=== PATIENT | male | born 1960 | race Caucasian/White ===

== ENCOUNTER → 2018-01-30 | Outpatient (CLI) | payer BC ==
[2018-01-30 07:17] LABS: Basophils % (A) 1 %; Eosinophils # (A) 0.1 k/uL (0-0.7); Eosinophils % (A) 3 %; HCT 45.3 % (39.0-53.0); Lymphocytes # (A) 1.9 k/uL (1.0-4.8); Lymphocytes % (A) 48 %; MCH 31.7 pg (25.0-35.0); MCV 96.1 fL (80.0-100.0); Mean Platelet Volume 6.5; Monocytes # (A) 0.3 k/uL (0-1.0); Monocytes % (A) 7 %; Neutrophils # (A) 1.5 k/uL (1.3-7.7); Neutrophils % (A) 37 %; Platelet Count 238 k/uL (150-450); RBC 4.72 m/uL (4.30-5.90); RDW 12.5 % (11.5-15.5)
[2018-01-30 07:49] LABS: Glucose 102 mg/dL (74-99); Total Protein 6.7 g/dL (6.3-8.2)
[2018-01-30 07:50] LABS: ALT 24 U/L (21-72); AST 25 U/L (17-59); Albumin 3.9 g/dL (3.5-5.0); Alkaline Phosphatase 51 U/L (38-126); Anion Gap 11 mmol/L; Blood Urea Nitrogen 18 mg/dL (9-20); Calcium 9.4 mg/dL (8.4-10.2); Carbon Dioxide 26 mmol/L (22-30); Chloride 105 mmol/L (98-107); Potassium 4.9 mmol/L (3.5-5.1); Sodium 142 mmol/L (137-145)
== END ==
LOC: LABWHC1 06:34
PROVIDERS: ATTEND Family Medicine
DX: D72.819 Decreased white blood cell count, unspecified (principal)
CPT/HCPCS: 36415; 80053; 82607; 85025

== ENCOUNTER → 2018-11-27 | Outpatient (CLI) | payer BC ==
[2018-11-27 07:27] LABS: Basophils % (A) 1 %; Eosinophils # (A) 0.1 k/uL (0-0.7); Eosinophils % (A) 3 %; HCT 44.4 % (39.0-53.0); HGB 14.9 gm/dL (13.0-17.5); Lymphocytes # (A) 1.5 k/uL (1.0-4.8); Lymphocytes % (A) 41 %; MCH 32.3 pg (25.0-35.0); MCHC 33.5 g/dL (31.0-37.0); MCV 96.5 fL (80.0-100.0); Mean Platelet Volume 6.4; Monocytes # (A) 0.2 k/uL (0-1.0); Monocytes % (A) 6 %; Neutrophils # (A) 1.7 k/uL (1.3-7.7); Neutrophils % (A) 45 %; Platelet Count 223 k/uL (150-450); RDW 12.8 % (11.5-15.5); WBC 3.7 k/uL (3.8-10.6)
[2018-11-27 12:28] LABS: Albumin 4.1 g/dL (3.80-4.90); Albumin/Globulin Ratio 1.78 (1.60-3.17); Anion Gap 6.8 mmol/L (4.00-12.00); Calcium 8.9 mg/dL (8.7-10.3); Carbon Dioxide 25.2 mmol/L (21.6-31.8); Globulin 2.3 g/dL (1.6-3.3); Potassium 4.3 mmol/L (3.5-5.5); Total Bilirubin 0.8 mg/dL (0.3-1.2); Total Protein 6.4 g/dL (6.2-8.2)
[2018-11-27 12:34] LABS: T4, Free (Free Thyroxine) 1.2 ng/dL (0.80-1.80)
== END ==
LOC: LABWHC1 06:38
PROVIDERS: ATTEND Family Medicine
DX: E78.5 Hyperlipidemia, unspecified (principal); N40.0 Benign prostatic hyperplasia without lower urinary tract symptoms; N18.2 Chronic kidney disease, stage 2 (mild); R00.1 Bradycardia, unspecified
CPT/HCPCS: 36415; 80053; 80061; 84153; 84439; 84443; 85025

== ENCOUNTER → 2018-12-16 | Outpatient (CLI) | payer BC ==
[2018-12-16 11:22] LABS: Vitamin D 25 Hydroxy 28.3 ng/mL (30.0-100.0)
== END ==
LOC: LABWHC1 06:33
PROVIDERS: ATTEND Family Medicine
DX: N52.9 Male erectile dysfunction, unspecified (principal); F10.10 Alcohol abuse, uncomplicated
CPT/HCPCS: 36415; 82306; 82607; 84402; 84403

== ENCOUNTER → 2019-11-04 | Outpatient (CLI) | payer BC ==
[2019-11-04 06:55] LABS: Appearance,Urine Clear (Clear); Basophils % (A) 1 %; Bilirubin,Urine Negative (Negative); Blood,Urine Negative (Negative); Color,Urine Yellow; Eosinophils # (A) 0.2 k/uL (0-0.7); Eosinophils % (A) 3 %; Glucose,Urine (UA) Negative (Negative); HCT 45.6 % (39.0-53.0); HGB 14.9 gm/dL (13.0-17.5); Ketones,Urine Negative (Negative); Leukocyte Esterase,Urine Negative (Negative); Lymphocytes % (A) 31 %; MCH 32.1 pg (25.0-35.0); MCHC 32.6 g/dL (31.0-37.0); MCV 98.4 fL (80.0-100.0); Mean Platelet Volume 6.9; Monocytes # (A) 0.3 k/uL (0-1.0); Monocytes % (A) 5 %; Neutrophils # (A) 3.7 k/uL (1.3-7.7); Neutrophils % (A) 58 %; Nitrite,Urine Negative (Negative); PH, Urine 6.5 (5.0-8.0); Platelet Count 215 k/uL (150-450); Protein,Urine Negative (Negative); RBC 4.63 m/uL (4.30-5.90); RDW 12.4 % (11.5-15.5); Specific Gravity,Urine 1.013 (1.001-1.035); Urobilinogen,Urine <2.0 mg/dL (<2.0); WBC 6.4 k/uL (3.8-10.6)
[2019-11-04 11:40] LABS: African American GFR (CKD) 94.4 (60.0-200.0); Albumin 4.1 g/dL (3.80-4.90); Albumin/Globulin Ratio 1.86 (1.60-3.17); Anion Gap 9.6 mmol/L (4.00-12.00); Calcium 9.1 mg/dL (8.7-10.3); Carbon Dioxide 28.4 mmol/L (21.6-31.8); Chol/HDL Ratio 3.16; Globulin 2.2 g/dL (1.6-3.3); LDL Cholesterol,Calculated 115.2 mg/dL (0.0-131.0); Non-African American GFR(CKD) 81.4 (60.0-200.0); Potassium 4.6 mmol/L (3.5-5.5); Total Bilirubin 1.1 mg/dL (0.2-1.2); Total Protein 6.3 g/dL (6.2-8.2); VLDL Calculation 18.8 mg/dL (5.00-40.00)
[2019-11-04 11:51] LABS: T4, Free (Free Thyroxine) 1.2 ng/dL (0.80-1.80)
== END | disposition home or self-care (01) ==
LOC: LABWHC1 06:34
PROVIDERS: ATTEND Family Medicine
DX: Z00.00 Encounter for general adult medical examination without abnormal findings (principal); E78.5 Hyperlipidemia, unspecified; N40.0 Benign prostatic hyperplasia without lower urinary tract symptoms; N52.9 Male erectile dysfunction, unspecified; E53.8 Deficiency of other specified B group vitamins; F10.10 Alcohol abuse, uncomplicated
CPT/HCPCS: 36415; 80053; 80061; 81003; 82306; 82607; 84153; 84403; 84439; 84443; 85025

== ENCOUNTER → 2020-05-03 | Outpatient (CLI) | payer BC ==
[2020-05-03 09:47] LABS: Basophils % (A) 1 %; Eosinophils # (A) 0.1 k/uL (0-0.7); Eosinophils % (A) 3 %; HCT 46.6 % (39.0-53.0); Lymphocytes % (A) 40 %; MCH 32.3 pg (25.0-35.0); MCHC 32.1 g/dL (31.0-37.0); MCV 100.7 fL (80.0-100.0); Mean Platelet Volume 6.8; Monocytes # (A) 0.3 k/uL (0-1.0); Monocytes % (A) 6 %; Neutrophils # (A) 2.4 k/uL (1.3-7.7); Neutrophils % (A) 46 %; Platelet Count 221 k/uL (150-450); RBC 4.63 m/uL (4.30-5.90); WBC 5.1 k/uL (3.8-10.6)
[2020-05-03 17:22] LABS: African American GFR (CKD) 94.4 (60.0-200.0); Albumin 3.8 g/dL (3.80-4.90); Albumin/Globulin Ratio 1.65 (1.60-3.17); Anion Gap 4.3 mmol/L (4.00-12.00); Carbon Dioxide 27.7 mmol/L (21.6-31.8); Chol/HDL Ratio 3.28; Globulin 2.3 g/dL (1.6-3.3); LDL Cholesterol,Calculated 113.8 mg/dL (0.0-131.0); Non-African American GFR(CKD) 81.4 (60.0-200.0); Potassium 4.6 mmol/L (3.5-5.5); Total Protein 6.1 g/dL (6.2-8.2); VLDL Calculation 23.2 mg/dL (5.00-40.00)
== END ==
LOC: LABWHC1 07:52
PROVIDERS: ATTEND Family Medicine
DX: E78.5 Hyperlipidemia, unspecified (principal); N18.2 Chronic kidney disease, stage 2 (mild); R00.1 Bradycardia, unspecified
CPT/HCPCS: 36415; 80053; 80061; 84443; 85025

== ENCOUNTER → 2020-06-14 | Outpatient (CLI) | payer BC ==
--- NOTE | 2020-06-15 06:55 | MR ---
EXAMINATION TYPE: MR hip LT wo con DATE OF EXAM: 06/14/2020 COMPARISON: Outside left hip x-ray report May 18, 2020. HISTORY: Left hip pain Standard multiplanar, multisequence MRI departmental protocol Multiplanar, multisequence images of the pelvis focusing on the left hip were acquired. FINDINGS: Moderate superior joint space loss in both hips is identified fairly symmetric in appearanc e. There are small to moderate sized left slightly greater than right hip joint effusions. There is a symmetric moderate collar spurring in the left hip versus the opposite right hip at the head neck harinder ction. There is overall heterogeneity bone marrow signal intensity bilaterally. In the left femoral h ead there is asymmetric irregular low T1 signal involving the medial aspect of the humeral head exten ding superiorly to represent coronal image 7. Adjacent T2 hyperintense signal superiorly is present. Asymmetric subchondral cyst involving the medial osseous acetabulum coronal image 7 is felt present. No gill bony fragmentation currently. There is asymmetric edema involving left thigh muscle medially axial image 10 localized to obturator muscle. Asymmetric small fat-containing left inguinal hernia axial image 14. Muscle bulk is preserved bilater ally. No suspicious groin adenopathy. No suspicious bowel dilatation. Prostate gland is within normal limits. Bladder is unremarkable. No c oncerning pelvic fluid collection is seen. Remainder of pelvis is unremarkable. IMPRESSION: Asymmetric fairly moderate increased degenerative change in the left hip as detailed above versus opp osite right hip. Unilateral early avascular necrosis noted. Edematous change in the left-sided obtura tor muscle could reflect strain injury.
== END | disposition home or self-care (01) ==
LOC: RADMRIMAIN 18:15
PROVIDERS: ATTEND Family Medicine
DX: M16.12 Unilateral primary osteoarthritis, left hip (principal); M87.052 Idiopathic aseptic necrosis of left femur

== ENCOUNTER → 2020-09-17 | Outpatient (CLI) | payer BC ==
[2020-09-17 08:23] LABS: Appearance,Urine Clear (Clear); Bilirubin,Urine Negative (Negative); Blood,Urine Negative (Negative); Color,Urine Light Yellow; Glucose,Urine (UA) Negative (Negative); HCT 43.3 % (39.0-53.0); HGB 14.6 gm/dL (13.0-17.5); Ketones,Urine Negative (Negative); Leukocyte Esterase,Urine Negative (Negative); MCH 33.1 pg (25.0-35.0); MCHC 33.7 g/dL (31.0-37.0); Mean Platelet Volume 6.5; Nitrite,Urine Negative (Negative); Platelet Count 225 k/uL (150-450); Protein,Urine Negative (Negative); RBC 4.42 m/uL (4.30-5.90); RDW 12.1 % (11.5-15.5); Specific Gravity,Urine 1.014 (1.001-1.035); Urobilinogen,Urine <2.0 mg/dL (<2.0); WBC 5.6 k/uL (3.8-10.6)
[2020-09-17 08:36] LABS: Partial Thromboplastin Time 25.1 sec (22.0-30.0)
[2020-09-17 09:00] LABS: ALT 17 U/L (4-49); AST 22 U/L (17-59); African American GFR (CKD) >90 (>60 ml/min/1.73 sqM); Albumin 3.8 g/dL (3.5-5.0); Alkaline Phosphatase 63 U/L (38-126); Anion Gap 4 mmol/L; Blood Urea Nitrogen 15 mg/dL (9-20); Calcium 8.9 mg/dL (8.4-10.2); Carbon Dioxide 28 mmol/L (22-30); Chloride 105 mmol/L (98-107); Glucose 102 mg/dL (74-99); Non-African American GFR(CKD) 88 (>60 ml/min/1.73 sqM); Potassium 4.4 mmol/L (3.5-5.1); Sodium 137 mmol/L (137-145); Total Bilirubin 0.8 mg/dL (0.2-1.3); Total Protein 6.8 g/dL (6.3-8.2)
== END | disposition home or self-care (01) ==
LOC: LABPAT 07:19
PROVIDERS: ATTEND Orthopaedic Surgery
DX: Z01.812 Encounter for preprocedural laboratory examination (principal); Z01.818 Encounter for other preprocedural examination
CPT/HCPCS: 36415; 80053; 81003; 85027; 85610; 85730; 87070; 93005

== ENCOUNTER → 2020-09-27 | Outpatient (CLI) | payer BC ==
--- NOTE | 2020-09-27 20:31 | XR ---
EXAMINATION TYPE: XR chest 2V DATE OF EXAM: 09/27/2020 COMPARISON: 09/22/2016 HISTORY: Weakness TECHNIQUE: 2 views FINDINGS: Heart is normal. Lungs are clear of infiltrate. There is no heart failure. There are no hil ar masses. Bony thorax is intact. IMPRESSION: No active cardiopulmonary disease. Normal heart. No change.
== END | disposition home or self-care (01) ==
LOC: LABPAT 16:04
PROVIDERS: ATTEND Family Medicine
DX: Z01.818 Encounter for other preprocedural examination (principal)
CPT/HCPCS: 71046; U0003

== ENCOUNTER 2020-10-04 05:34 | Day surgery (SDC) | payer BC ==
[2020-09-27 10:53] VITALS: BMI 26.9
[~2020-10-04 05:34] MED LIST: ACETAMINOPHEN TAB 500 MG TAB PO PRN; DEXAMETHASONE SOD PHOSPHATE 4 MG/ML 1 ML VIAL IV ONE; GABAPENTIN 300 MG CAP PO PRN; HYDROmorphone 0.5 MG/0.5 ML SYRINGE IVP PRN; LACTATED RINGERS 1,000 ML IV SCH; LIDOCAINE 1% (10MG/ML) FOR IV START INTRADERMA PRN; MELOXICAM 7.5 MG TAB PO PRN; ONDANSETRON 4 MG/2 ML VIAL IVP ONE; ROPIVACAINE/EPI/CLONIDINE/KET 50 ML SYRINGE MISCELLANE PRN; TRANEXAMIC ACID 1,000 MG in SODIUM CHLORIDE 0.9% 100 ML IVPB PRN
[2020-10-04] MEDS ORDERED: ONDANSETRON 4 MG/2 ML VIAL ONE (06:24)
[2020-10-04] MEDS ORDERED: DEXAMETHASONE SOD PHOSPHATE 4 MG/ML 1 ML VIAL IV ONE (06:37)
[2020-10-04] MEDS ORDERED: SODIUM CHLORIDE 0.9% IRRIG 1,000 ML BTL IRRIGATION ONE (06:40)
[2020-10-04] MEDS ORDERED: HEPARIN SODIUM,PORCINE 10,000 UNIT/ML 1 ML VIAL ONE (06:40)
[2020-10-04] MEDS ORDERED: HYDROmorphone (PF) 1 MG/ML ONE (06:49)
[2020-10-04] MEDS ORDERED: fentaNYL (PF) 50 MCG/ML 2 ML AMP ONE (06:49)
[2020-10-04] MEDS ORDERED: MIDAZOLAM 2 MG/2 ML VIAL ONE (06:49)
[2020-10-04] MEDS ORDERED: TRANEXAMIC ACID 1,000 MG/10 ML VIAL ONE (06:49)
[2020-10-04] MEDS ORDERED: GLYCOPYRROLATE 0.2 MG/ML 2 ML VIAL ONE (06:49)
[2020-10-04] MEDS ORDERED: SODIUM CHLORIDE 0.9% 100 ML BAG ONE (06:49)
[2020-10-04] MEDS ORDERED: SUCCINYLCHOLINE CHLORIDE 100 MG/5 ML SYR IV ONE (06:49)
[2020-10-04] MEDS ORDERED: ePHEDrine SULFATE/0.9% NACL/PF 50 MG/5 ML SYRINGE IV ONE (06:49)
[2020-10-04] MEDS ORDERED: ROCURONIUM 10 MG/ML (10 ML VIAL) IV ONE (06:49)
[2020-10-04] MEDS ORDERED: PROPOFOL 10 MG/ML 20 ML VIAL IV ONE (06:49)
[2020-10-04] MEDS ORDERED: NEOSTIGMINE 1 MG/ML 10 ML VIAL ONE (06:49)
[2020-10-04] MEDS ORDERED: LIDOCAINE 1% INJ 10MG/ML (20 ML MDV) ONE (06:49)
[2020-10-04] MEDS ORDERED: ceFAZolin 3,000 MG in SODIUM CHLORIDE 0.9% IRRIGATIO 3,000 ML IRRIGATION ONE (06:53)
--- NOTE | 2020-10-04 08:34 | P.OP ---
Date of Procedure: 10/04/20 Preoperative Diagnosis: Severe osteoarthritis left hip Postoperative Diagnosis: Severe osteoarthritis left hip Procedure(s) Performed: Left total hip arthroplasty with a direct anterior approach Implants: [employer] Polarstem standard size 6 [employer] R3, 3 hole hemispherical acetabular shell, 54 mm [employer] Reflection 6.5 mm cancellus screw, 20 mm, 25 mm [employer] R3, XLPE 20 acetabular liner [employer]hew Oxinium femoral head 36 m, +0 All components were press-fit. The articulation is Oxinium on polyethylene. Anesthesia: GETA Surgeon: Felix Maya Chyron Operator #1: Mary Claire Estimated Blood Loss (ml): 500 (198 mL returned with Cell Saver) Pathology: other (Femoral head) Condition: stable Disposition: PACU Indications for Procedure: After failure of conservative treatment we discussed the surgical and nonsurgical treatment options at length. Patient wishes to proceed with a total hip arthroplasty with a direct anterior approach. Complications specific to this procedure were discussed at length, including but not limited to infection, leg length discrepancy, dislocation, nerve injury, and fracture. Covid-19 was also discussed at length with the patient, and they are aware of the current policies and procedures. The patient was given the option of delaying surgery, but they elect to proceed knowing these risks. Patient is aware of all these complications and informed consent was obtained Operative Findings: The operative findings are consistent with severe osteoarthritis of the left hip Description of Procedure: Patient was seen and evaluated in the preoperative area and the consent was reviewed. The operative site was marked with a skin marker. The patient was then brought to the operating room and given preoperative antibiotics intravenously. 1 g of Tranexamic acid was also given intravenously. A general anesthetic was administered by the anesthesia department. The patient was then placed on the Dawson table with the bony prominences well-padded. The hip area was then prepped with a ChloraPrep solution and draped in the usual sterile fashion. A universal timeout was then performed, which confirmed the patient's name, surgical site, ALLERGIES, and procedure being performed on the consent. Next the incision site was located at 1 cm distal and 1 cm lateral to the anterior superior iliac spine. The skin and subcutaneous tissues were sharply incised. Incision was carefully dissected down to the fascia overlying the tensor fascia efren muscle. This fascia was then incised in line with the incision. Care was taken to stay laterally in order to avoid injuring the lateral femoral cutaneous nerve. Next, using blunt finger dissection, the tensor fascia efren muscle was dissected off its investing fascia. The muscle was then carefully retracted laterally with a cobra retractor over the lateral neck of the femur. Next, the circumflex vessels were identified and cauterized using the AquaMantis device. The anterior hip capsule was then exposed. The capsule was then opened and an inverted T fashion. Cobra retractors were then placed intracapsularly. The retractors were maintained intracapsular throughout the procedure. The proximal femur was then visualized. A small amount of traction was placed on the leg. The femoral neck was then osteotomized appropriate level above the lesser trochanter. A small wedge of bone was then removed from the remaining femoral head. Next, using a corkscrew the femoral head was removed from the acetabulum. On gross visual inspection, the femoral head had complete loss of articular cartilage and multiple periarticular osteophytes. The femoral head was then measured. Attention was then turned to the acetabulum. The acetabulum was exposed and any remaining labrum was excised. Sequential reaming of the acetabulum was performed using fluoroscopic guidance until there was a good bed of bleeding cancellus bone. When the appropriate size was reached, a trial was then placed. The position and fit of the trial was checked with fluoroscopy. The trial was then removed. Then, using fluoroscopic guidance, the final implant was impacted at 20 of anteversion and 40 of abduction, and fully seated in the acetabulum. 2 screws were then placed in the acetabulum. Again fluoroscopy was used to check position of the screws. Next, the liner was then impacted, with a 20 elevated liner located in the anterior superior quadrant. Component locking was confirmed. Attention was then directed to the femur. With the aid of the Dawson table, the femur was externally rotated to approximately 130, extended, and adducted under the opposite leg. A side hook was then placed under the proximal femur, and the side hook elevator was used to elevate the proximal femur while releasing the capsule. Retractors were then placed. A capsular release was performed, as well as a release of the conjoined tendon, which afforded excellent visualization of the proximal femur. Next, a box osteotome was used to lateralize the proximal femur. A wood scrap handler was then used to locate the femoral canal. Sequential broaching was then performed with appropriate size which afforded excellent fixation in the proximal femur. A trial was then placed with appropriate head and neck, and the hip was gently reduced with the aid of the Dawson table. Fluoroscopy was then used to check position of the components, as well as to ensure equal leg lengths. The hip was then gently dislocated and the trials were then removed. Final implants were then impacted and the hip was again reduced. Final fluoroscopic x-rays confirmed that the components were in anatomic position, as well as equal leg lengths. The hip was also taken through range of motion, and found to be stable. The hip was then copiously irrigated with antibiotic solution with pulsatile lavage. The hip was then irrigated with Irrisept solution. The soft tissues were then injected with a ropivacaine solution, which consisted of 246.25 mg of ropivacaine, 0.5 mg of epinephrine, 30 mg of Toradol, 80 g of clonidine, and 48.45 mL of sterile water, for a total of 100 mL of fluid injected. A second dose of 1 g of Tranexamic acid was also given intravenously. Any blood collected by Cell Saver was then returned to the patient at this time. The fascia was then closed with 2-0 strata fix suture. The subcutaneous tissue was closed with 3-0 Vicryl. The subcuticular tissue was closed with 3-0 strata fix suture. The skin was then closed with Exofin skin glue. After the glue and dried, and Optifoam silver impregnated dressing was applied. The patient was then transferred to the recovery room in stable condition. The workforce development assistant RACHEL Jackson was required due to the complexity of surgery, and the need for skilled assistant to the dean for positioning, draping, exposure, retraction, and closure of the wound.
[2020-10-04 08:46] VITALS: TEMP 97.3
[2020-10-04] MEDS ORDERED: HYDROmorphone 1 MG/ML 1 ML SYRINGE IVP PRN (08:48)
[2020-10-04] MEDS ORDERED: HYDROmorphone 0.5 MG/0.5 ML SYRINGE IVP PRN (08:48)
[2020-10-04] MEDS ORDERED: HYDROmorphone 0.2 MG/1 ML SYRINGE IVP PRN (08:48)
[2020-10-04] MEDS ORDERED: NALOXONE 0.4 MG/ML 1 ML VIAL IV PRN (08:48)
[2020-10-04] MEDS ORDERED: ONDANSETRON 4 MG/2 ML VIAL IVP PRN (08:48)
[2020-10-04 08:52] VITALS: RESP 16
[2020-10-04] MEDS ORDERED: HYDROcodone/APAP 7.5-325MG 1 EACH TAB PO PRN ×2 (08:52)
[2020-10-04] MEDS ORDERED: SODIUM CHLORIDE 0.9% 1,000 ML IV SCH (09:00)
--- NOTE | 2020-10-04 09:15 | FL ---
EXAMINATION TYPE: FL guidance operating room DATE OF EXAM: 10/04/2020 HISTORY: Fluoroscopy time 40 seconds of fluoroscopy provided. IMPRESSION: 1. Fluoroscopy time.
--- NOTE | 2020-10-04 09:19 | XR ---
EXAMINATION TYPE: XR Hip Limited LT DATE OF EXAM: 10/04/2020 COMPARISON: NONE HISTORY: 60-year-old male status post hip surgery, assess surgical alignment TECHNIQUE: Single AP view FINDINGS: Image shows placement of left hip total arthroplasty. Both acetabular cup and femoral stem components of the prosthesis appear well seated without periprosthetic fracture. Alignment grossly anatomic. So ft tissue air related to recent operation. Left-sided pelvic phleboliths. IMPRESSION: Uncomplicated postoperative appearance left total hip arthroplasty.
--- NOTE | 2020-10-04 09:46 | XR ---
EXAMINATION TYPE: XR Hip Limited LT DATE OF EXAM: 10/04/2020 COMPARISON: NONE HISTORY: Postop TECHNIQUE: One view submitted. FINDINGS: There is postsurgical change in near anatomic alignment. There is soft tissue edema and emphysema. IMPRESSION: 1. Postoperative change. Appears in near-anatomic alignment.
[2020-10-04] MEDS ORDERED: LACTATED RINGERS 1,000 ML IV ONE (10:00)
[2020-10-04 12:27] VITALS: BP 114/73; PULSE 69
== END 2020-10-04 14:43 | disposition home health service (06) ==
LOC: OR 05:34
PROVIDERS: ATTEND Orthopaedic Surgery
DX: M16.12 Unilateral primary osteoarthritis, left hip (principal); M25.752 Osteophyte, left hip; Z79.82 Long term (current) use of aspirin; Z98.890 Other specified postprocedural states; Z87.891 Personal history of nicotine dependence; Z79.1 Long term (current) use of non-steroidal anti-inflammatories (NSAID); Z88.0 Allergy status to penicillin; E78.5 Hyperlipidemia, unspecified
CPT/HCPCS: 97110; 97161; 86891; 88300; 73501; 27130; C1776; J2250; J1644; J1100; J2710; J0690 ×2; J2405; J2001; J3010; J1170; J0330; J2704; 86850; 86900; 86901

== ENCOUNTER 2021-03-17 19:32 | Emergency (ER) | payer BC ==
[2021-03-17 19:58] VITALS: RESP 18
[2021-03-17] MEDS ORDERED: IBUPROFEN 800 MG TAB PO STA (20:51)
--- NOTE | 2021-03-17 20:53 | ED ---
General Adult HPI - General Chief complaint: Weakness Stated complaint: Weakness Time Seen by Provider: 03/17/21 20:31 Source: family Mode of arrival: EMS Limitations: no limitations - History of Present Illness Initial comments: Dictation was produced using [employer] dictation software. please excuse any grammatical, word or spelling errors. Chief Complaint: 60-year-old male presents to the emergency department for chills History of Present Illness: 60-year-old male who presents to the emergency department for chills. Patient denies any significant comorbidities. States that he went to his teeth cleaned. After the dental cleaning he started to feel cold. Patient has no localizing symptoms. No sore throat and nose cough. No abdominal pain diarrhea. No nausea vomiting. No ear pain. The ROS documented in this emergency department record has been reviewed and confirmed by me. Those systems with pertinent positive or negative responses have been documented in the HPI. All other systems are other negative and/or noncontributory. PHYSICAL EXAM: General Impression: Alert and oriented x3, not in acute distress HEENT: Normocephalic atraumatic, extra-ocular movements intact, pupils equal and reactive to light bilaterally, mucous membranes moist, normal TMs Cardiovascular: Heart regular rate and rhythm Chest: Able to complete full sentences, no retractions, no tachypnea, all lung mckeon which are normal clear to auscultation Abdomen: abdomen soft, non-tender, non-distended, no organomegaly Musculoskeletal: Pulses present and equal in all extremities, no peripheral edema Motor: no focal deficits noted Neurological: CN II-XII grossly intact, no focal motor or sensory deficits noted, negative Brudzinski's, negative Kernig's, negative Lhermitte's Skin: Intact with no visualized rashes Psych: Normal affect and mood ED course: 60 yo male presents emergency department for constitutional symptoms. He has no localizing symptoms. Vital signs upon arrival shows her to 100.6, rest of vital signs within acceptable limits. Laboratory evaluation obtained. CBC unremarkable. No leukocytosis. Metabolic panel is unremarkable. CRP is negative. Negative for fluid A, flu B, RSV or coronavirus. Patient observed in emergency department more proximally 3 hours please reevaluated bedside at 10:15 to be stable medical condition. Patient's symptoms likely secondary to viral illness. He is agreeable for discharge. - Related Data Home Medications Medication Instructions Recorded Confirmed Aspirin [Adult Low Dose Aspirin EC] 81 mg PO DAILY 09/27/20 03/17/21 Multivitamins, Thera [Multivitamin 1 tab PO DAILY 09/27/20 03/17/21 (formulary)] Cholecalciferol [Vitamin D3 (25 25 mcg PO DAILY 03/17/21 03/17/21 Mcg = 1000 Iu)] Cyanocobalamin (Vitamin B-12) 1,000 mcg PO DAILY 03/17/21 03/17/21 [Vitamin B-12] Ibuprofen [Motrin Ib] 600 mg PO Q8H PRN 03/17/21 03/17/21 Allergies Allergy/AdvReac Type Severity Reaction Status Date / Time No Known Allergies Allergy Verified 03/17/21 21:43 Review of Systems ROS Statement: Those systems with pertinent positive or pertinent negative responses have been documented in the HPI. ROS Other: All systems not noted in ROS Statement are negative. Past Medical History Past Medical History: No Reported History History of Any Multi-Drug Resistant Organisms: None Reported Past Surgical History: Orthopedic Surgery Additional Past Surgical History / Comment(s): basal cell carcinoma removal to cheek, oral surgery Past Psychological History: No Psychological Hx Reported Smoking Status: Never smoker Past Alcohol Use History: Occasional Past Drug Use History: None Reported General Exam Limitations: no limitations Course Vital Signs 03/17/21 19:54 Temperature 100.6 F H Pulse Rate 92 Respiratory 18 Rate Blood Pressure 113/72 O2 Sat by Pulse 97 Oximetry Medical Decision Making - Lab Data Result diagrams: 03/17/21 21:22 03/17/21 21:22 Lab Results 03/17/21 03/17/21 03/17/21 Range/Units 20:48 21:22 21:22 WBC 5.2 (3.8-10.6) k/uL RBC 4.71 (4.30-5.90) m/uL Hgb 15.6 (13.0-17.5) gm/dL Hct 45.2 (39.0-53.0) % MCV 96.0 (80.0-100.0) fL MCH 33.1 (25.0-35.0) pg MCHC 34.5 (31.0-37.0) g/dL RDW 13.3 (11.5-15.5) % Plt Count 114 L (150-450) k/uL MPV 6.9 Neutrophils % (Manual) 84 % Band Neuts % (Manual) 9 % Lymphocytes % (Manual) 7 % Neutrophils # (Manual) 4.80 (1.3-7.7) k/uL Lymphocytes # (Manual) 0.36 L (1.0-4.8) k/uL Nucleated RBCs 0 (0-0) /100 WBC Manual Slide Review Performed Sodium 137 (137-145) mmol/L Potassium 4.5 (3.5-5.1) mmol/L Chloride 104 (98-107) mmol/L Carbon Dioxide 26 (22-30) mmol/L Anion Gap 7 mmol/L BUN 18 (9-20) mg/dL Creatinine 1.03 (0.66-1.25) mg/dL Est GFR (CKD-EPI)AfAm >90 (>60 ml/min/1.73 sqM) Est GFR (CKD-EPI)NonAf 78 (>60 ml/min/1.73 sqM) Glucose 126 H (74-99) mg/dL Calcium 9.4 (8.4-10.2) mg/dL C-Reactive Protein 0.9 (<1.0) mg/dL Influenza Type A (PCR) Not Detected (Not Detectd) Influenza Type B (PCR) Not Detected (Not Detectd) RSV (PCR) Not Detected (Not Detectd) SARS-CoV-2 (PCR) Not Detected (Not Detectd) Disposition Clinical Impression: Chills Disposition: HOME SELF-CARE Condition: Fair Instructions (If sedation given, give patient instructions): Viral Syndrome (ED) Is patient prescribed a controlled substance at d/c from ED?: No Referrals: Rebeca Michele MD [Primary Care Provider] - 1-2 days
[2021-03-17 21:39] LABS: HCT 45.2 % (39.0-53.0); HGB 15.6 gm/dL (13.0-17.5); MCH 33.1 pg (25.0-35.0); MCHC 34.5 g/dL (31.0-37.0); Mean Platelet Volume 6.9; Platelet Count 114 k/uL (150-450); RBC 4.71 m/uL (4.30-5.90); RDW 13.3 % (11.5-15.5); WBC 5.2 k/uL (3.8-10.6)
[2021-03-17 21:56] LABS: African American GFR (CKD) >90 (>60 ml/min/1.73 sqM); Anion Gap 7 mmol/L; Blood Urea Nitrogen 18 mg/dL (9-20); C Reactive Protein 0.9 mg/dL (<1.0); Calcium 9.4 mg/dL (8.4-10.2); Carbon Dioxide 26 mmol/L (22-30); Chloride 104 mmol/L (98-107); Glucose 126 mg/dL (74-99); Non-African American GFR(CKD) 78 (>60 ml/min/1.73 sqM); Potassium 4.5 mmol/L (3.5-5.1); Sodium 137 mmol/L (137-145)
[2021-03-17 22:06] LABS: Band Neutrophils % 9 %; Lymphocytes # (M) 0.36 k/uL (1.0-4.8); Neutrophils % (M) 84 %; Nucleated Red Blood Cells 0 /100 WBC (0-0); Total Cells Counted 100
[2021-03-17 22:31] VITALS: BP 139/78; PULSE 70; TEMP 98.9
== END 2021-03-17 22:30 | disposition home or self-care (01) ==
LOC: EC 19:32
DX: R68.83 Chills (without fever) (principal); Z79.82 Long term (current) use of aspirin; Z79.1 Long term (current) use of non-steroidal anti-inflammatories (NSAID)
CPT/HCPCS: 36415; 80048; 85025; 86140; 87040; 87636; 99283

== ENCOUNTER → 2021-08-31 | Outpatient (CLI) | payer BC ==
[2021-08-31 11:43] LABS: Basophils # (A) 0.03 X 10*3/uL (0.00-0.10); Basophils % (A) 0.5 %; Eosinophils # (A) 0.15 X 10*3/uL (0.04-0.35); Eosinophils % (A) 2.6 %; HCT 42.9 % (39.6-50.0); HGB 14.2 g/dL (13.0-17.0); Lymphocytes # (A) 3.28 X 10*3/uL (0.90-5.00); MCHC 33.1 g/dL (32.0-37.0); MCV 96.6 fL (80.0-97.0); Mean Platelet Volume 9.5 fL (9.5-12.2); Monocytes % (A) 6.8 %; Neutrophils # (A) 1.98 X 10*3/uL (1.80-7.70); Neutrophils % (A) 33.8 %; Platelet Count 209 X 10*3/uL (140-440); RBC 4.44 X 10*6/uL (4.40-5.60); RDW 12.5 % (11.5-14.5); WBC 5.86 X 10*3/uL (4.50-10.00)
[2021-08-31 12:26] LABS: ALT 28 U/L (10-49); AST 31 U/L (14-35); Albumin/Globulin Ratio 1.59 (1.60-3.17); Alkaline Phosphatase 62 U/L (41-126); BUN/Creat Ratio 12.97 Ratio (12.00-20.00); Blood Urea Nitrogen 13.1 mg/dL (9.0-27.0); Calcium 9.1 mg/dL (8.7-10.3); Carbon Dioxide 24.7 mmol/L (20.0-27.5); Chloride 104 mmol/L (96-109); Chol/HDL Ratio 3.89 Ratio; Creatine Kinase 619 U/L (35-257); Globulin 2.5 g/dL (1.6-3.3); Glucose 107 mg/dL (70-110); LDL Cholesterol,Calculated 136.1 mg/dL (0.0-131.0); Magnesium 2.1 mg/dL (1.5-2.4); Non-African American GFR(CKD) 79.4 (60.0-200.0); Potassium 4.5 mmol/L (3.5-5.5); Sodium 139 mmol/L (135-145); Total Protein 6.6 g/dL (6.2-8.2)
== END | disposition home or self-care (01) ==
LOC: LABWHC1 07:45
PROVIDERS: ATTEND Family Medicine
DX: U07.1 COVID-19 (principal); E53.8 Deficiency of other specified B group vitamins; N18.2 Chronic kidney disease, stage 2 (mild); N40.0 Benign prostatic hyperplasia without lower urinary tract symptoms
CPT/HCPCS: 36415; 80053; 80061; 82306; 82550; 82607; 83735; 84153; 84443; 85025

== ENCOUNTER 2022-03-29 06:58 | Day surgery (SDC) | payer BC ==
[2022-03-27 12:13] VITALS: BMI 26.9
[~2022-03-29 06:58] MED LIST changes: -ACETAMINOPHEN TAB 500 MG TAB PO PRN; -DEXAMETHASONE SOD PHOSPHATE 4 MG/ML 1 ML VIAL IV ONE; -GABAPENTIN 300 MG CAP PO PRN; -HYDROmorphone 0.5 MG/0.5 ML SYRINGE IVP PRN; -MELOXICAM 7.5 MG TAB PO PRN; -ONDANSETRON 4 MG/2 ML VIAL IVP ONE; -ROPIVACAINE/EPI/CLONIDINE/KET 50 ML SYRINGE MISCELLANE PRN; -TRANEXAMIC ACID 1,000 MG in SODIUM CHLORIDE 0.9% 100 ML IVPB PRN
[2022-03-29 07:27] VITALS: TEMP 97
[2022-03-29] MEDS ORDERED: LIDOCAINE 2% INJ 20 MG/ML (2 ML VIAL) ONE (08:13)
[2022-03-29] MEDS ORDERED: PROPOFOL 10 MG/ML 20 ML VIAL IV ONE (08:13)
--- NOTE | 2022-03-29 08:32 | P.PCN ---
Date of Procedure: 03/29/22 Procedure(s) Performed: BRIEF HISTORY: Patient is a 61-year-old pleasant white male scheduled for an elective colonoscopy as a part of screening for colorectal neoplasia. PROCEDURE PERFORMED: Colonoscopy. PREOPERATIVE DIAGNOSIS: Screening for colon cancer. IV sedation per Anesthesia. PROCEDURE: After informed consent was obtained, the patient, was brought into the endoscopy unit. IV sedation was administered by Anesthesia under continuous monitoring. Digital rectal examination was normal. Initially the Olympus CF-160 flexible video colonoscope was then inserted in the rectum, gradually advanced into the cecum without any difficulty. Careful examination was performed as the scope was gradually being withdrawn. Ileocecal valve and the appendiceal orifice were visualized and appeared normal. Prep was excellent. Mucosa of the cecum, ascending colon, transverse colon, descending colon, sigmoid colon, and rectum appeared normal. Retroflexion was performed in the rectum and no lesions were seen. The patient tolerated the procedure well. IMPRESSION: Normal-appearing colon from rectum to cecum with no evidence of colorectal neoplasia. RECOMMENDATIONS: Findings of this examination were discussed with the patient as well as his family. He was advised to have a repeat screening colonoscopy in 10 years.
[2022-03-29 08:51] VITALS: BP 117/72; PULSE 60; RESP 20
== END 2022-03-29 09:22 | disposition home or self-care (01) ==
LOC: ORWHC2ENDO 06:58
PROVIDERS: ATTEND Internal Medicine Gastroenterology
DX: Z12.11 Encounter for screening for malignant neoplasm of colon (principal); Z79.82 Long term (current) use of aspirin; Z88.0 Allergy status to penicillin; Z87.891 Personal history of nicotine dependence; Z85.828 Personal history of other malignant neoplasm of skin
CPT/HCPCS: J2704; J2001; G0121

== ENCOUNTER → 2022-09-12 | Outpatient (CLI) | payer BC ==
[2022-09-12 10:44] LABS: Basophils # (A) 0.03 X 10*3/uL (0.00-0.10); Basophils % (A) 0.4 %; Eosinophils % (A) 2.9 %; HCT 43.3 % (39.6-50.0); HGB 14.8 g/dL (13.0-17.0); Immature Grans, Automated 0.4 %; Lymphocytes # (A) 4.17 X 10*3/uL (0.90-5.00); MCHC 34.2 g/dL (32.0-37.0); MCV 96.7 fL (80.0-97.0); Mean Platelet Volume 9.2 fL (9.5-12.2); Monocytes # (A) 0.38 X 10*3/uL (0.20-1.00); Monocytes % (A) 5.6 %; NRBC Per 100 WBC 0 /100 WBCS (0.0-0.0); Neutrophils # (A) 2.03 X 10*3/uL (1.80-7.70); Neutrophils % (A) 29.7 %; Platelet Count 215 X 10*3/uL (140-440); RBC 4.48 X 10*6/uL (4.40-5.60); RDW 13.1 % (11.5-14.5); WBC 6.84 X 10*3/uL (4.50-10.00)
[2022-09-12 11:06] LABS: LDL Cholesterol,Calculated 126.1 mg/dL (0.0-131.0)
[2022-09-12 11:07] LABS: ALT 23 U/L (10-49); AST 22 U/L (14-35); African American GFR (CKD) 91.3 (60.0-200.0); Albumin/Globulin Ratio 1.71 (1.60-3.17); Alkaline Phosphatase 58 U/L (41-126); BUN/Creat Ratio 14.46 Ratio (12.00-20.00); Blood Urea Nitrogen 14.6 mg/dL (9.0-27.0); Calcium 9.1 mg/dL (8.7-10.3); Carbon Dioxide 23.1 mmol/L (20.0-27.5); Chloride 105 mmol/L (96-109); Globulin 2.4 g/dL (1.6-3.3); Glucose 101 mg/dL (70-110); Non-African American GFR(CKD) 78.8 (60.0-200.0); Potassium 4.7 mmol/L (3.5-5.5); Sodium 140 mmol/L (135-145); Total Protein 6.4 g/dL (6.2-8.2)
== END | disposition home or self-care (01) ==
LOC: LABWHC1 07:11
PROVIDERS: ATTEND Family Medicine
DX: Z00.00 Encounter for general adult medical examination without abnormal findings (principal); E78.5 Hyperlipidemia, unspecified; E56.9 Vitamin deficiency, unspecified; N40.0 Benign prostatic hyperplasia without lower urinary tract symptoms; N18.2 Chronic kidney disease, stage 2 (mild)
CPT/HCPCS: 36415; 80053; 80061; 82306; 82607; 84153; 84443; 85025

== ENCOUNTER → 2022-12-30 | Outpatient (CLI) | payer BC ==
[2022-12-30 11:15] LABS: Basophils # (A) 0.03 X 10*3/uL (0.00-0.10); Basophils % (A) 0.4 %; Eosinophils # (A) 0.18 X 10*3/uL (0.04-0.35); Eosinophils % (A) 2.6 %; HCT 42.9 % (39.6-50.0); HGB 14.5 g/dL (13.0-17.0); Immature Grans, Automated 0.3 %; Lymphocytes # (A) 4.05 X 10*3/uL (0.90-5.00); Lymphocytes % (A) 58.5 %; MCHC 33.8 g/dL (32.0-37.0); MCV 97.5 fL (80.0-97.0); Mean Platelet Volume 9.6 fL (9.5-12.2); Monocytes % (A) 4.3 %; NRBC Per 100 WBC 0 /100 WBCS (0.0-0.0); Neutrophils # (A) 2.34 X 10*3/uL (1.80-7.70); Neutrophils % (A) 33.9 %; Platelet Count 189 X 10*3/uL (140-440); RDW 12.7 % (11.5-14.5); WBC 6.92 X 10*3/uL (4.50-10.00)
[2022-12-30 11:46] LABS: ALT 18 U/L (10-49); AST 17 U/L (14-35); African American GFR (CKD) 92.4 (60.0-200.0); Alkaline Phosphatase 56 U/L (41-126); Carbon Dioxide 24.8 mmol/L (20.0-27.5); Chloride 107 mmol/L (96-109); Chol/HDL Ratio 3.54 Ratio; Globulin 2.5 g/dL (1.6-3.3); Glucose 102 mg/dL (70-110); Non-African American GFR(CKD) 79.7 (60.0-200.0); Potassium 4.5 mmol/L (3.5-5.5); Sodium 140 mmol/L (135-145); Total Protein 6.5 g/dL (6.2-8.2); VLDL Calculation 19.88 mg/dL (5.00-40.00)
== END | disposition home or self-care (01) ==
LOC: LABWHC1 08:19
PROVIDERS: ATTEND Family Medicine
DX: Z00.00 Encounter for general adult medical examination without abnormal findings (principal); N18.2 Chronic kidney disease, stage 2 (mild); E78.5 Hyperlipidemia, unspecified; E53.8 Deficiency of other specified B group vitamins; E55.9 Vitamin D deficiency, unspecified
CPT/HCPCS: 36415; 80053; 80061; 82306; 82607; 84443; 85025

== ENCOUNTER → 2023-09-11 | Outpatient (CLI) | payer BC ==
[2023-09-11 11:52] LABS: ALT 22 U/L (10-49); AST 20 U/L (14-35); Albumin 4.1 g/dL (3.8-4.9); Albumin/Globulin Ratio 1.52 Ratio (1.60-3.17); Alkaline Phosphatase 61 U/L (41-126); BUN/Creat Ratio 11.64 Ratio (12.00-20.00); Blood Urea Nitrogen 12.8 mg/dL (9.0-27.0); Calcium 9.6 mg/dL (8.7-10.3); Carbon Dioxide 25.6 mmol/L (21.6-31.8); Chloride 103 mmol/L (96-109); Chol/HDL Ratio 3.25 Ratio; Globulin 2.7 g/dL (1.6-3.3); Glucose 105 mg/dL (70-110); LDL Cholesterol,Calculated 135.6 mg/dL (0.0-131.0); Potassium 4.6 mmol/L (3.5-5.5); Prostate Specific Antigen 0.76 ng/mL (0.000-4.500); Sodium 140 mmol/L (135-145); Total Bilirubin 0.8 mg/dL (0.3-1.2); Total Protein 6.8 g/dL (6.2-8.2)
[2023-09-11 15:46] LABS: HCT 46.5 % (39.6-50.0); HGB 15.2 g/dL (13.0-17.0); MCH 32.6 pg (27.0-32.0); MCHC 32.7 g/dL (32.0-37.0); MCV 99.8 FL (80.0-97.0); Mean Platelet Volume 9.9 FL (9.5-12.2); NRBC Per 100 WBC 0 X 10*3/uL (0.00-0.01); Platelet Count 195 X 10*3/uL (140-440); RBC 4.66 X 10*6/uL (4.40-5.60); RDW 13.2 % (11.5-14.5); WBC 8.25 X 10*3/uL (4.50-10.00)
[2023-09-11 18:27] LABS: Basophils # (M) 0 X 10*3/uL (0.00-0.10); Eosinophils # (M) 0.16 X 10*3/uL (0.04-0.35); Lymphocytes # (M) 6.02 X 10*3/uL (0.90-5.00); Monocytes # (M) 0.25 X 10*3/uL (0.20-1.00); Neutrophils # (M) 1.82 X 10*3/uL (1.80-7.70); Neutrophils % (M) 22 %; RBC Morphology Normal (Normal)
== END | disposition home or self-care (01) ==
LOC: LABWHC1 07:06
PROVIDERS: ATTEND Family Medicine
DX: Z00.00 Encounter for general adult medical examination without abnormal findings (principal); N18.2 Chronic kidney disease, stage 2 (mild); E78.5 Hyperlipidemia, unspecified; N40.0 Benign prostatic hyperplasia without lower urinary tract symptoms; E53.8 Deficiency of other specified B group vitamins; E55.9 Vitamin D deficiency, unspecified
CPT/HCPCS: 36415; 80053; 80061; 82306; 82607; 84153; 84443; 85025

== ENCOUNTER → 2024-01-22 | Outpatient (CLI) | payer BC ==
--- NOTE | 2024-01-24 09:21 | US ---
EXAMINATION TYPE: US scrotum with doppler. Grayscale and color Doppler Duplex imaging performed of marcio mccoy scrotum. DATE OF EXAM: 01/22/2024 COMPARISON: NONE CLINICAL INDICATION: Male, 63 years old with history of N50.812 LEFT TESTICULAR PAIN; EXAM MEASUREMENTS: TESTICLES: Right Testicle: 5.3 x 1.9 x 3.1 cm Left Testicle: 4.8 x 2.0 x 2.9 cm EPIDIDYMIS HEAD: Right Epididymis: 1.4 cm, 0.8cm cyst Left Epididymis: 1.4 cm Doppler performed to assess for testicular vascularity; good bilateral color flow and waveforms are s een. There is no evidence of testicular torsion. Presence of hydroceles: no Presence of varicoceles: no IMPRESSION: 1. Incidental note is made of a 8 mm right epididymal cysts. 2. No other significant amount is seen. Specifically, there is no testicular mass or torsion.
== END | disposition home or self-care (01) ==
LOC: RADUSWWP 13:58
PROVIDERS: ATTEND Family Medicine
DX: N50.812 Left testicular pain (principal)
CPT/HCPCS: 76870; 93975

== ENCOUNTER → 2024-09-19 | Outpatient (CLI) | payer MEDICARE ==
[2024-09-19 10:39] LABS: HCT 44.3 % (39.6-50.0); HGB 14.5 g/dL (13.0-17.0); MCH 32.1 pg (27.0-32.0); MCHC 32.7 g/dL (32.0-37.0); Mean Platelet Volume 9.4 FL (9.5-12.2); NRBC Per 100 WBC 0.02 X 10*3/uL (0.00-0.01); Platelet Count 179 X 10*3/uL (140-440); RBC 4.52 X 10*6/uL (4.40-5.60); RDW 12.7 % (11.5-14.5); WBC 7.91 X 10*3/uL (4.50-10.00)
[2024-09-19 11:06] LABS: ALT 17 U/L (10-49); AST 19 U/L (14-35); Albumin/Globulin Ratio 1.54 Ratio (1.60-3.17); Alkaline Phosphatase 56 U/L (41-126); BUN/Creat Ratio 11.67 Ratio (12.00-20.00); Calcium 9.3 mg/dL (8.7-10.3); Chloride 106 mmol/L (96-109); Chol/HDL Ratio 3.37 Ratio; Globulin 2.6 g/dL (1.6-3.3); Glucose 103 mg/dL (70-110); LDL Cholesterol,Calculated 119.8 mg/dL (0.0-131.0); Potassium 4.9 mmol/L (3.5-5.5); Prostate Specific Antigen 0.96 ng/mL (0.000-4.500); Sodium 141 mmol/L (135-145); Total Bilirubin 0.8 mg/dL (0.3-1.2); Total Protein 6.6 g/dL (6.2-8.2)
[2024-09-19 11:49] LABS: Basophils # (M) 0 X 10*3/uL (0.00-0.10); Eosinophils # (M) 0.32 X 10*3/uL (0.04-0.35); Lymphocytes # (M) 6.17 X 10*3/uL (0.90-5.00); Monocytes # (M) 0.16 X 10*3/uL (0.20-1.00); Neutrophils # (M) 1.27 X 10*3/uL (1.80-7.70); Neutrophils % (M) 16 %
== END | disposition home or self-care (01) ==
LOC: LABWHC1 07:24
PROVIDERS: ATTEND Family Medicine
DX: Z00.00 Encounter for general adult medical examination without abnormal findings (principal); E53.8 Deficiency of other specified B group vitamins; E55.9 Vitamin D deficiency, unspecified; E78.5 Hyperlipidemia, unspecified; N40.0 Benign prostatic hyperplasia without lower urinary tract symptoms; R00.1 Bradycardia, unspecified
CPT/HCPCS: 36415; 80053; 80061; 82306; 82607; 84153; 84443; 85025